=== PATIENT | male | born 1960 | race Caucasian/White ===

== ENCOUNTER → 2019-09-20 | Outpatient (CLI) | payer MEDICAID | END | disposition home or self-care (01) | LOC: NPLAB 16:38 | PROVIDERS: ATTEND Internal Medicine | DX: E11.65 Type 2 diabetes mellitus with hyperglycemia (principal) | CPT/HCPCS: 83036 ==

== ENCOUNTER → 2020-05-17 | Outpatient (CLI) | payer MEDICAID ==
[2020-05-17 16:22] LABS: BASOPHIL # 0.1 10^3/uL (0.0-0.1); BASOPHIL % 0.2 % (0.0-0.2); LYMPHOCYTES # 2.06 10^3/uL1 (1.0-4.8); LYMPHOCYTES % 6.8 % (24.0-44.0); MEAN CORP HGB 29.3 pg (26-34); MONOCYTES # 1.9 10^3/uL (0.3-0.8); MONOCYTES % 6.2 % (5.0-12.0); NEUTROPHIL # 25.8 10^3/uL (1.8-7.7); NEUTROPHILS % 85.8 % (41.0-85.0); PLATELET COUNT 249 10^3/uL (150-400); RED CELL DISTRIBUTION WIDTH 15.6 % (11.5-14.5)
[2020-05-17 16:40] LABS: CALCIUM 8.9 mg/dL (8.4-10.5)
[2020-05-17 16:44] LABS: APPEARANCE,URINE CLEAR (CLEAR); BILIRUBIN,URINE NEGATIVE (NEGATIVE); UA COLOR YELLOW (YELLOW); UROBILINOGEN,URINE NORMAL (NEGATIVE)
[2020-05-17 18:53] LABS: BAND NEUTROPHILS 1 % (2-6); DIFFERENTIAL COMMENT NORMAL; LYMPHOCYTE 8 % (25-36); MONOCYTE 6 % (3-9); MYELOCYTES 1 %; SEGMENTED NEUTROPHILS 84 % (31-76)
== END | disposition home or self-care (01) ==
LOC: NPLAB 15:52
PROVIDERS: ATTEND Internal Medicine
DX: I10 Essential (primary) hypertension (principal)
CPT/HCPCS: 36415; 80053; 80061; 81000; 85025; 87086; 87804

== ENCOUNTER → 2020-06-14 | Outpatient (CLI) | payer MEDICAID ==
[2020-06-14 17:49] LABS: BASOPHIL # 0.1 10^3/uL (0.0-0.1); BASOPHIL % 0.6 % (0.0-0.2); EOSINOPHIL # 0.3 10^3/uL (0.0-0.2); EOSINOPHIL % 1.8 % (0.0-5.0); LYMPHOCYTES # 3.98 10^3/uL1 (1.0-4.8); LYMPHOCYTES % 27.3 % (24.0-44.0); MEAN CORP HGB 28.1 pg (26-34); MONOCYTES # 1.2 10^3/uL (0.3-0.8); MONOCYTES % 7.9 % (5.0-12.0); NEUTROPHILS % 61.9 % (41.0-85.0); PLATELET COUNT 371 10^3/uL (150-400); RED CELL DISTRIBUTION WIDTH 16.1 % (11.5-14.5)
[2020-06-14 17:57] LABS: APPEARANCE,URINE CLEAR (CLEAR); BILIRUBIN,URINE NEGATIVE (NEGATIVE); UA COLOR YELLOW (YELLOW)
[2020-06-14 17:58] LABS: UROBILINOGEN,URINE NORMAL (NEGATIVE)
== END | disposition home or self-care (01) ==
LOC: NPLAB 15:50
PROVIDERS: ATTEND Internal Medicine
DX: R63.4 Abnormal weight loss (principal)
CPT/HCPCS: 80061; 80069; 81000; 83036; 84156; 84436; 84439; 84443; 85025

== ENCOUNTER → 2020-07-12 | Outpatient (CLI) | payer MEDICAID | END | disposition home or self-care (01) | LOC: NPLAB 19:45 | PROVIDERS: ATTEND Internal Medicine | DX: R89.5 Abnormal microbiological findings in specimens from other organs, systems and tissues (principal) | CPT/HCPCS: 87070 ==

== ENCOUNTER → 2020-07-16 | Outpatient (CLI) | payer MEDICAID | END | disposition home or self-care (01) | LOC: NPLAB 13:43 | PROVIDERS: ATTEND Internal Medicine | DX: A49.9 Bacterial infection, unspecified (principal) | CPT/HCPCS: 87070 ==

== ENCOUNTER → 2024-01-05 | Outpatient (CLI) | payer MEDICAID ==
[2024-01-05 18:54] LABS: BASOPHIL # 0.1 10^3/uL (0.0-0.1); BASOPHIL % 0.6 % (0.0-0.2); EOSINOPHIL # 0.2 10^3/uL (0.0-0.2); EOSINOPHIL % 1.7 % (0.0-5.0); HEMATOCRIT(ML) 34.8 % (37.0-53.0); HEMOGLOBIN 11.1 g/dL (13.9-16.3); LYMPHOCYTES # 3.03 10^3/uL1 (1.0-4.8); LYMPHOCYTES % 23.6 % (24.0-44.0); MEAN CORP HGB CONCENTRATION 31.9 g/dL (33-36.5); MEAN CORP VOLUME 94.1 fL (78-100); MONOCYTES # 0.8 10^3/uL (0.3-0.8); MONOCYTES % 5.8 % (5.0-12.0); NEUTROPHIL # 8.6 10^3/uL (1.8-7.7); NEUTROPHILS % 67.4 % (41.0-85.0); PLATELET COUNT 277 10^3/uL (150-400); RED CELL DISTRIBUTION WIDTH 14.4 % (11.5-14.5); WHITE BLOOD CELL 12.8 10^3/uL (4.5-11.0)
[2024-01-05 19:00] LABS: +ADD MANUAL DIFF(NO CHRG) NO
[2024-01-05 19:25] LABS: ALBUMIN(ML) 2.7 g/dL (3.4-5.0); ALBUMIN/GLOBULIN RATIO 0.794; ANION GAP 19.1; BUN/CREATININE RATIO 7.42 (10.0-20.0); CARBON DIOXIDE 19.6 mmol/L (20.0-32); CREATININE SERUM 4.58 mg/dL (0.59-1.40); EST GFR, NON-AA 13.1 (>/=60); POTASSIUM 4.7 mmol/L (3.6-5.2)
== END | disposition home or self-care (01) ==
LOC: NPLAB 17:29
PROVIDERS: ATTEND Internal Medicine
DX: E11.22 Type 2 diabetes mellitus with diabetic chronic kidney disease (principal); N18.30 Chronic kidney disease, stage 3 unspecified; J44.9 Chronic obstructive pulmonary disease, unspecified; E11.65 Type 2 diabetes mellitus with hyperglycemia; E78.2 Mixed hyperlipidemia
CPT/HCPCS: 36415; 80053; 80061; 83036; 84443; 85025